=== PATIENT | female | born 2000 | race Caucasian/White ===

== ENCOUNTER 2022-02-05 17:10 | Inpatient (IN) ==
[2022-02-05] MEDS ORDERED: SODIUM CHLORIDE 0.9% 1000ML 1,000 ML IV ONE (17:28)
--- NOTE | 2022-02-05 17:28 | ED Triage Note ---
Date of Service February 05, 2022 History of Present Illness This patient was briefly evaluated while in triage. An abbreviated physical exam was performed. This patient is a 21-year-old Female with past medical history of Type 1 DM who presents to the ED for evaluation of elevated blood sugar. States they diagnosed her with Type 1 DM today with elevated blood sugar of 400. Physical Exam VITALS: Vitals are noted on the nurse's note and reviewed by myself. GENERAL: This is a 21 year old white female, in no acute distress, nondiaphoretic, well-developed well-nourished. SKIN: No obvious rashes, edema, erythema HEAD: Normocephalic atraumatic. EYES: Conjunctivae without injection, sclerae without icterus. NECK: No JVD. LUNGS: No retractions or accessory muscle use. MUSCULOSKELETAL: Normal gait. NEURO: Patient was alert and oriented to person place and time. No focal neurological deficits. Initial orders for labs and / or imaging were placed and patient was placed in the waiting area until a bed is available. Please see further documentation for the full ED course.
[2022-02-05 19:41] LABS: Basophils # (auto) 0.09 K/uL (0-0.2); Basophils % (auto) 0.9 %; Eosinophils # (auto) 0.12 K/uL (0-0.50); Eosinophils % (auto) 1.2 %; Hemoglobin 13.1 g/dl (12.0-16.0); Immature Granulocytes # (auto) 0.02 K/uL (0.00-0.02); Immature Granulocytes % (auto) 0.2 %; Lymphocytes # (auto) 2.75 K/uL (1.2-3.4); Lymphocytes % (auto) 28.3 %; Mean Corpuscular Hemoglobin 26.9 pg (25.0-34.0); Mean Corpuscular Hgb Conc 33.6 g/dL (32.0-36.0); Mean Corpuscular Volume 80.1 fL (80.0-100.0); Mean Platelet Volume 11.5 fL (9.4-12.3); Monocytes # (auto) 0.82 K/uL (0.24-0.82); Monocytes % (auto) 8.4 %; Neutrophils # (auto) 5.92 K/uL (1.4-6.5); Platelet Count 241 K/uL (130-400); RDW Coefficient of Variation 14.1 % (11.5-14.5); RDW Standard Deviation 40.2 fL (36.4-46.3); Red Blood Count 4.87 M/uL (3.93-5.22); White Blood Count 9.72 K/ul (4.8-10.8)
[2022-02-05 19:48] LABS: Appearance Urine Clear (Clear); Bilirubin Urine Negative (Negative); Blood Urine Negative (Negative); Color Urine Yellow; Glucose Urine UA 3+ (Negative); Ketones Urine 4+ (Negative); Leukocyte Esterase Urine Negative (Negative); Nitrite Urine Negative (Negative); Protein Urine Negative (Negative); Specific Gravity Urine > 1.045 (1.000-1.030); Urobilinogen Urine Negative (Negative); pH Urine 5.5 (4.5-7.5)
[2022-02-05 20:05] LABS: Albumin Globulin Ratio 1.3 (0.9-2); Albumin Level 4.1 gm/dl (3.4-5.0); BUN Creatinine Ratio 17.9 (10-20); Bilirubin,Total 0.4 mg/dl (0.2-1.0); Calcium 9.1 mg/dl (8.5-10.1); Creatinine Clr Calc Pharmacy 128.8 ml/min; Est GFR (Non-African American) 108.7 ml/min; Globulin 3.2 gm/dl (2.5-4.0); Magnesium 1.8 mg/dl (1.7-2.4); Potassium 3.9 mmol/L (3.5-5.1); Total Protein 7.3 gm/dl (6.0-8.3)
[2022-02-05] MEDS ORDERED: FLUCONAZOLE 50 MG TAB PO ONE (20:10)
[2022-02-05 20:12] LABS: Pregnancy Test, Serum Negative (Negative)
[2022-02-05] MEDS ORDERED: ACETAMINOPHEN 325 MG TAB PO PRN (20:39)
--- NOTE | 2022-02-05 20:40 | History & Physical Report ---
Date of Service February 05, 2022 Assessment & Plan (1) Diabetes mellitus, new onset: Plan: This is a 21-year-old female with an extensive family history of thyroid issues (hyperthyroidism and hypothyroidism) as well as MGM with RA who presented to [facility] for evaluation of >1 month of polydipsia, polyuria, and polyphagia, subsequently found to have a BSG >350 on arrival (>400 at S just prior). Her presentation in the context of a FHX of autoimmune-related issues is concerning for T1DM/DM1.5. Symptomatic Hyperglycemia / New-onset DM - Likely Type I or 1.5 - Polyuria, polyphagia, polydipsia x >1 month without recent medication changes, illnesses, or other reported symptoms - FHX is significant for multiple maternal relatives with hyper/hypothyroidism and patient's MGM has RA -- no FHX of T1DM or otherwise - Work-up as follows: - Serum BSG on arrival 321 (at [facility], was apparently >400) - Normal AG 10, normal HCO3 at 24 - 3+ glycosuria, 4+ ketonuria - BMI 25.9 on arrival - A1c pending ; lipids pending - In context of autoimmune family history, suspect likely sec to new-onset T1DM -- thankfully without evidence of DKA at this time. Type 1.5 is also possible. No findings c/w parapancreatic, medication, metabolic, or illness induced at this time. - Will check the following prior to insulin initiation: anti-GAD65, anti-IA2, anti-insulin, anti-ZnT8 alongside Cu, Fe/ferritin --> Consider checking C-peptide and serum insulin levels as outpatient once this acute event resolves - Aggressive hydration; give another 1L LR bolus now, then start 0.45% NaCl alongside 4 x 10mEq KCls - Given work-up is ongoing and we do not have A1c at this time -- opt to start insulin gtt to gauge total needs before initiating basal/bolus --> Start with 2U bolus and thereafter 2U/hr --> Consider the following regimen if A1c returns c/w T1DM: 60-80U TDD / 30- 40 basal / 20-30 CF / CC 6-8U/g --> Glycemic consult appreciated during initial phase with gtt --> Check BMP + Phos q4h and replete PRN - Diabetes education consulted - Extensive education at bedside provided RE: pathophysiology, causes, treatments - Will require endocrinology consultation at discharge (2) Candidal vulvovaginitis: Plan: Candidal Vulvovaginitis - Patient reporting pruritis in vaginal area over last week - exam deferred - Likely candidal vulvovaginitis in setting of hyperglycemia - Fluconazole 150mg x 1 given in the ED Plan Code: FULL Diet: DM1 PPX: Low risk Dispo: MS/T while insulin infusion ongoing History of Present Illness Primary Care Provider: [facility] This is a 21-year-old female with no prior medical history who presented to [facility] for evaluation of hyperglycemia. Patient states that over the last month, she has been experiencing excessive thirst, excessive urination, and excessive appetite. She also says that she has been getting muscle cramps in her legs. She denies ever having this before. She denies any recent fever, chills, sweats, or illnesses. She denies any abdominal pain. She denies any recent medications. Due to the interruptions that the symptoms were causing in her life, including sleep, she did go to [facility], who performed basic chemistries that revealed a serum sugar over 400. She was instructed to go to the emergency department for further evaluation and work-up. 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 She does endorse occasional marijuana use and infrequent alcohol use; she does say that over the last month since the symptoms have been going on that her memory after night of drinking has been a lot worse, and hangovers have been worse. She denies any family history of type 1 diabetes, mom also denies this. Mom does report a personal history of "mixed thyroid problems, " as well as 2 maternal aunts of mother who both have hyperthyroidism, a brother of mother who has hypothyroidism. Mother also reports that her mother (maternal grandmother to patient) has rheumatoid arthritis. She denies any family history of celiac disease, lupus, ankylosing spondylitis. In the ED, patient was found to be borderline tachycardic at 99 with otherwise normal vital signs. CBC was normal. Chemistries revealing of sodium 130 in the context of blood sugar 321, normal LFTs. No gap, normal bicarb. Urine studies revealed high specific gravity with 3+ glucosuria and 4+ ketones. She was given 1L NSS and fluconazole. Allergies Allergy/AdvReac Type Severity Reaction Status Date / Time No Known Allergies Allergy Unverified 02/05/22 20:35 Home Medications Medication Instructions Recorded Confirmed Type drospirenone 3 mg-ethinyl 1 tab PO QPM 02/05/22 02/05/22 History estradiol 0.03 mg tablet blood sugar diagnostic (OneTouch #150 ea 02/06/22 Rx Verio test strips) insulin aspart U-100 100 unit/mL 50 unit (0.5 mL) subcut UD #15 mL 02/06/22 Rx (3 mL) subcutaneous pen (Novolog Flexpen U-100 Insulin aspart) insulin glargine 100 unit/mL (3 20 unit (0.2 mL) subcut DAILY #15 02/06/22 Rx mL) subcutaneous pen (Lantus mL Solostar U-100 Insulin) lancets 33 gauge (OneTouch Delica #150 ea 02/06/22 Rx Lancets) pen needle, diabetic 32 gauge x #150 ea 02/06/22 Rx 5/32" (Pen Needle) Past Med/Surg History Medical History No significant medical problems Social History Smoking Status: Never smoker Hx Alcohol Use: Yes Hx Substance Use: No Preferred Language: Cypriot Communication Ability: Effective Musculoskeletal Physician Required: No Beliefs That Will Affect Care: None Current Living Situation Comment: College Other Information That Helps Us Care for You: No Feels Safe at Home: Yes Safety Concerns: Feels Safe At This Time Assistive Devices: None Review of Systems Review of Systems: as per HPI Physical Exam Physical Exam: General: 21-year old female who is alert, oriented, and appears in no acute distress. HEENT: NCAT. - Eyes - Sclera are white, anicteric, and without injection. - Mouth - MMM - Neck - supple, no appreciable JVD Cardiac: Normal rate and regular rhythm; S1 and S2 present with no murmurs, rubs, or gallops. Pulmonary: Good respiratory effort with symmetric expansion of the chest. No use of accessory muscles. Lungs were clear to auscultation bilaterally with no crackles or wheezes. Abdominal: Normoactive bowel sounds. Abdomen was soft, nondistended, and non- tender to palpation. Extremities: Upper and lower extremities are warm and well perfused. No peripheral edema in the lower extremities bilaterally Psych: Well-developed, well-nourished, appropriately dressed for occasion. Behavior is cooperative and appropriate. Affect is WNL. Insight is appropriate. Results & Data Results & Data ([facility]) Vital Signs (Past 12 Hours) Vital Signs Temp Pulse Pulse Resp BP BP Pulse Ox 02/05/22 20:11 73 18 151/102 H 99 02/05/22 19:37 66 18 145/85 H 100 02/05/22 17:26 37.4 C 99 H 20 131/83 97 O2 Del Method 02/05/22 20:11 Room Air 02/05/22 19:37 Room Air 02/05/22 17:26 Room Air Supervising Physician Co-Signing Physician Notes Attending addendum: I have physically seen this patient, have supervised the medical residents activities, and agree with the H&P unless as otherwise noted. Assessment and Plan: New onset diabetes mellitus- BSG 321 on admission Ordered hemoglobin A1c and fasting lipid panel Insulin drip as noted to determine insulin requirements Serial CBC with differential, BMP and phosphorus levels as noted Diabetes education consult as noted IV fluids as noted Following potassium closely with supplementation as noted Elizabeth vulvovaginitis- Empiric Diflucan as noted Remaining orders and notations as noted Resident Activity Tracking Resident Involvement: Resident Care Provided Care Provided: Adult Hospital Medicine
[2022-02-05] MEDS ORDERED: POTASSIUM CHLORIDE CRTAB 20 MEQ TABCR PO STA (20:55)
[2022-02-05] MEDS ORDERED: LACTATED RINGER'S 1,000 ML IV ONE (20:55)
--- NOTE | 2022-02-05 20:58 | Emergency Department Note ---
Impression & Plan Hyperglycemia, Acute dehydration, Acute hyponatremia, Candidal vulvovaginitis ED Provider Note NAME: MADAY BENAVIDES AGE: 21 SEX: F : 2000 ARRIVES VIA: Walk-In INFORMANT: [Patient] ED PROVIDER(S): [Ashvin Corrigan MD] CHIEF COMPLAINT: Abnormal laboratories HISTORY OF PRESENT ILLNESS: The patient is a 21-year-old female who presents to the ER with a high blood sugar. She was called by [facility] and told her sugar was over 400. The patient has had about a month and increased thirst and increased urination. She has some leg cramps. For 2 days, she has had symptoms consistent with a vaginal yeast infection. She had lab work done as noted above and then was referred to our ED. There has been no cough or cold or congestion. No chest pain. She has not been feeling feverish. She has no history of diabetes REVIEW OF SYSTEMS: See HPI for pertinent positives and negatives. A total of ten systems were r eviewed and were otherwise negative. PMHx/PSHx: See Below SOCIAL HISTORY: See Below. PHYSICAL EXAM: GENERAL: Patient is in no acute distress. HEENT: No acute trauma, normocephalic atraumatic, mucous membranes moist, no nasal congestion, no scleral icterus. NECK: No stridor, no adenopathy, no meningismus, trachea is midline. LUNGS: Clear to auscultation bilaterally, no wheeze, no rhonchi, breath sounds equal. HEART: Subtle systolic murmur, slightly irregular rhythm. Normal rate. ABDOMEN: Soft, nontender, bowel sounds positive, no peritonitis. EXTREMITIES: No cyanosis or edema, full range of motion of all the joints without pain or difficulty, no signs for acute trauma. NEUROLOGIC: Oriented x 3, no acute motor or sensory deficits, no focal weakness. SKIN: No rash, no jaundice, no diaphoresis. DIFFERENTIAL DIAGNOSIS: Generalized viral illness, dehydration, electrolyte imbalance, diabetes type 2, diabetes type 1, UTI, infection, among others. EMERGENCY DEPARTMENT COURSE/PROCEDURES: MEDICAL DECISION MAKING: There is no leukocytosis or concerning anemia. There is a normal platelet count. Sodium was low at 130. Glucose was high at 321. No renal failure. No worrisome liver enzyme elevation. No pancreatitis. testing was negative. Urine showed ketones and glucose. COVID test returned negative. The patient appears to have new onset diabetes, likely type I given her age and body habitus. The patient was given IV saline, 2 L. I did not start IV insulin as the patient did not appear to be in DKA. I do think the patient requires a hospital stay. She is quite dehydrated. She will need education on how to manage her newly diagnosed diabetes. I did speak with the patient and her family, I spoke with case management, the on-call hospitalist was consulted. Of note, the patient describes symptoms consistent with a vaginal yeast infection. This certainly would fit with her newly diagnosed diabetes. The patient was given oral Diflucan, 150 mg to treat what was thought to be a vaginal yeast infection. Past Med/Surg History Medical History No significant medical problems Social History Smoking Status: Never smoker Hx Alcohol Use: Yes Hx Substance Use: No Preferred Language: Armenian Communication Ability: Effective Eligibility Examiner Required: No Beliefs That Will Affect Care: None Current Living Situation Comment: College Other Information That Helps Us Care for You: No Feels Safe at Home: Yes Safety Concerns: Feels Safe At This Time Assistive Devices: None Allergies Allergies Allergy/AdvReac Type Severity Reaction Status Date / Time No Known Allergies Allergy Unverified 02/05/22 20:35 Home Meds Home Medications Medication Instructions Recorded Confirmed drospirenone 3 mg-ethinyl 1 tab PO QPM 02/05/22 02/05/22 estradiol 0.03 mg tablet Results & Data (ED) Vital Signs Vital Signs - 24 hr 02/05/22 17:26 02/05/22 19:37 02/05/22 20:11 Temperature 37.4 C Temperature Source Skin Pulse Rate 99 H Pulse Rate [Finger] 66 73 Pulse Rhythm [Finger] Regular Pulse Strength [Finger] Normal Respiratory Rate 20 18 18 Respiratory Effort / Characteristics Non-Labored Spontaneous Non-Labored Spontaneous Non-Labored Spontaneous Respiratory Depth Normal Normal Normal Respiratory Pattern Regular Regular Regular Blood Pressure 131/83 Blood Pressure [Left Arm] 145/85 H 151/102 H Blood Pressure Mean 99 Blood Pressure Mean [Left Arm] 105 118 Pulse Oximetry 97 100 99 Oxygen Delivery Method Room Air Room Air Room Air Sepsis Recent Fever Within 48 Hours No Sepsis New/Unexplained Change in Mental Status N/A Sepsis Action Taken by Nursing No Action Required Home Medications Current Medication List: was personally reviewed by me Laboratory Data Attestation: I reviewed the patient's lab results. Result diagrams: 02/05/22 19:26 02/06/22 12:09 Lab Results 02/05/22 02/05/22 02/05/22 Range/Units 19:20 19:26 19:26 WBC 9.72 (4.8-10.8) K/ul RBC 4.87 (3.93-5.22) M/uL Hgb 13.1 (12.0-16.0) g/dl Hct 39.0 (34.1-44.9) % MCV 80.1 (80.0-100.0) fL MCH 26.9 (25.0-34.0) pg MCHC 33.6 (32.0-36.0) g/dL RDW Std Deviation 40.2 (36.4-46.3) fL RDW Coeff of Jeremy 14.1 (11.5-14.5) % Plt Count 241 (130-400) K/uL MPV 11.5 (9.4-12.3) fL Immature Gran % (Auto) 0.2 % Neut % (Auto) 61.0 % Lymph % (Auto) 28.3 % [place] % (Auto) 8.4 % Eos % (Auto) 1.2 % Baso % (Auto) 0.9 % Neut # (Auto) 5.92 (1.4-6.5) K/uL Lymph # (Auto) 2.75 (1.2-3.4) K/uL [place] # (Auto) 0.82 (0.24-0.82) K/uL Eos # (Auto) 0.12 (0-0.50) K/uL Baso # (Auto) 0.09 (0-0.2) K/uL Immature Gran # (Auto) 0.02 (0.00-0.02) K/uL Sodium 130 L (136-145) mmol/L Potassium 3.9 (3.5-5.1) mmol/L Chloride 96 L (98-107) mmol/L Carbon Dioxide 24 (21-32) mmol/L Anion Gap 10 (3-11) BUN 14 (6-23) mg/dl Creatinine 0.78 (0.6-1.2) mg/dl Est Cr Clr Drug Dosing 128.8 ml/min Est GFR ( Amer) 126.0 ml/min Est GFR (Non-Af Amer) 108.7 ml/min BUN/Creatinine Ratio 17.9 (10-20) Glucose 321 H* (70-99(Fasting)) mg/dl POC Glucose 313 H* (70-99) mg/dl Estimat Average Glucose mg/dl Hemoglobin A1c (4.5-5.6) % Calcium 9.1 (8.5-10.1) mg/dl Magnesium 1.8 (1.7-2.4) mg/dl Iron (35-150) mcg/dl Ferritin (8-388) ng/ml Total Bilirubin 0.4 (0.2-1.0) mg/dl AST 21 (13-39) U/L ALT 22 (7-52) U/L Alkaline Phosphatase 87 (34-104) U/L Total Protein 7.3 (6.0-8.3) gm/dl Albumin 4.1 (3.4-5.0) gm/dl Globulin 3.2 (2.5-4.0) gm/dl Albumin/Globulin Ratio 1.3 (0.9-2) Triglycerides (0-150) mg/dl Cholesterol (0-200) mg/dl LDL Cholesterol, Calc mg/dl VLDL Cholesterol, Calc (0-30) mg/dl HDL Cholesterol mg/dl Cholesterol/HDL Ratio (0-5) Lipase (11-82) U/L HCG, Qual (Negative) Urine Color Urine Appearance (Clear) Urine pH (4.5-7.5) Ur Specific [place] (1.000-1.030) Urine Protein (Negative) Urine Glucose (UA) (Negative) Urine Ketones (Negative) Urine Blood (Negative) Urine Nitrite (Negative) Urine Bilirubin (Negative) Urine Urobilinogen (Negative) Ur Leukocyte Esterase (Negative) SARS-CoV-2, RNA, NAAT (NEGATIVE) 02/05/22 02/05/22 02/05/22 Range/Units 19:26 19:26 19:26 WBC (4.8-10.8) K/ul RBC (3.93-5.22) M/uL Hgb (12.0-16.0) g/dl Hct (34.1-44.9) % MCV (80.0-100.0) fL MCH (25.0-34.0) pg MCHC (32.0-36.0) g/dL RDW Std Deviation (36.4-46.3) fL RDW Coeff of Jeremy (11.5-14.5) % Plt Count (130-400) K/uL MPV (9.4-12.3) fL Immature Gran % (Auto) % Neut % (Auto) % Lymph % (Auto) % [place] % (Auto) % Eos % (Auto) % Baso % (Auto) % Neut # (Auto) (1.4-6.5) K/uL Lymph # (Auto) (1.2-3.4) K/uL [place] # (Auto) (0.24-0.82) K/uL Eos # (Auto) (0-0.50) K/uL Baso # (Auto) (0-0.2) K/uL Immature Gran # (Auto) (0.00-0.02) K/uL Sodium (136-145) mmol/L Potassium (3.5-5.1) mmol/L Chloride (98-107) mmol/L Carbon Dioxide (21-32) mmol/L Anion Gap (3-11) BUN (6-23) mg/dl Creatinine (0.6-1.2) mg/dl Est Cr Clr Drug Dosing ml/min Est GFR ( Amer) ml/min Est GFR (Non-Af Amer) ml/min BUN/Creatinine Ratio (10-20) Glucose (70-99(Fasting)) mg/dl POC Glucose (70-99) mg/dl Estimat Average Glucose 349 mg/dl Hemoglobin A1c 13.8 H (4.5-5.6) % Calcium (8.5-10.1) mg/dl Magnesium (1.7-2.4) mg/dl Iron (35-150) mcg/dl Ferritin (8-388) ng/ml Total Bilirubin (0.2-1.0) mg/dl AST (13-39) U/L ALT (7-52) U/L Alkaline Phosphatase (34-104) U/L Total Protein (6.0-8.3) gm/dl Albumin (3.4-5.0) gm/dl Globulin (2.5-4.0) gm/dl Albumin/Globulin Ratio (0.9-2) Triglycerides 179 H (0-150) mg/dl Cholesterol 177 (0-200) mg/dl LDL Cholesterol, Calc 69 mg/dl VLDL Cholesterol, Calc 36 H (0-30) mg/dl HDL Cholesterol 72 mg/dl Cholesterol/HDL Ratio 2.5 (0-5) Lipase (11-82) U/L HCG, Qual Negative (Negative) Urine Color Urine Appearance (Clear) Urine pH (4.5-7.5) Ur Specific [place] (1.000-1.030) Urine Protein (Negative) Urine Glucose (UA) (Negative) Urine Ketones (Negative) Urine Blood (Negative) Urine Nitrite (Negative) Urine Bilirubin (Negative) Urine Urobilinogen (Negative) Ur Leukocyte Esterase (Negative) SARS-CoV-2, RNA, NAAT (NEGATIVE) 02/05/22 02/05/22 02/05/22 Range/Units 19:26 19:26 19:31 WBC (4.8-10.8) K/ul RBC (3.93-5.22) M/uL Hgb (12.0-16.0) g/dl Hct (34.1-44.9) % MCV (80.0-100.0) fL MCH (25.0-34.0) pg MCHC (32.0-36.0) g/dL RDW Std Deviation (36.4-46.3) fL RDW Coeff of Jeremy (11.5-14.5) % Plt Count (130-400) K/uL MPV (9.4-12.3) fL Immature Gran % (Auto) % Neut % (Auto) % Lymph % (Auto) % [place] % (Auto) % Eos % (Auto) % Baso % (Auto) % Neut # (Auto) (1.4-6.5) K/uL Lymph # (Auto) (1.2-3.4) K/uL [place] # (Auto) (0.24-0.82) K/uL Eos # (Auto) (0-0.50) K/uL Baso # (Auto) (0-0.2) K/uL Immature Gran # (Auto) (0.00-0.02) K/uL Sodium (136-145) mmol/L Potassium (3.5-5.1) mmol/L Chloride (98-107) mmol/L Carbon Dioxide (21-32) mmol/L Anion Gap (3-11) BUN (6-23) mg/dl Creatinine (0.6-1.2) mg/dl Est Cr Clr Drug Dosing ml/min Est GFR ( Amer) ml/min Est GFR (Non-Af Amer) ml/min BUN/Creatinine Ratio (10-20) Glucose (70-99(Fasting)) mg/dl POC Glucose (70-99) mg/dl Estimat Average Glucose mg/dl Hemoglobin A1c (4.5-5.6) % Calcium (8.5-10.1) mg/dl Magnesium (1.7-2.4) mg/dl Iron 56 (35-150) mcg/dl Ferritin 10.3 (8-388) ng/ml Total Bilirubin (0.2-1.0) mg/dl AST (13-39) U/L ALT (7-52) U/L Alkaline Phosphatase (34-104) U/L Total Protein (6.0-8.3) gm/dl Albumin (3.4-5.0) gm/dl Globulin (2.5-4.0) gm/dl Albumin/Globulin Ratio (0.9-2) Triglycerides (0-150) mg/dl Cholesterol (0-200) mg/dl LDL Cholesterol, Calc mg/dl VLDL Cholesterol, Calc (0-30) mg/dl HDL Cholesterol mg/dl Cholesterol/HDL Ratio (0-5) Lipase 31 (11-82) U/L HCG, Qual (Negative) Urine Color Yellow Urine Appearance Clear (Clear) Urine pH 5.5 (4.5-7.5) Ur Specific [place] > 1.045 H (1.000-1.030) Urine Protein Negative (Negative) Urine Glucose (UA) 3+ H (Negative) Urine Ketones 4+ H (Negative) Urine Blood Negative (Negative) Urine Nitrite Negative (Negative) Urine Bilirubin Negative (Negative) Urine Urobilinogen Negative (Negative) Ur Leukocyte Esterase Negative (Negative) SARS-CoV-2, RNA, NAAT (NEGATIVE) 02/05/22 02/05/22 Range/Units 20:15 20:22 WBC (4.8-10.8) K/ul RBC (3.93-5.22) M/uL Hgb (12.0-16.0) g/dl Hct (34.1-44.9) % MCV (80.0-100.0) fL MCH (25.0-34.0) pg MCHC (32.0-36.0) g/dL RDW Std Deviation (36.4-46.3) fL RDW Coeff of Jeremy (11.5-14.5) % Plt Count (130-400) K/uL MPV (9.4-12.3) fL Immature Gran % (Auto) % Neut % (Auto) % Lymph % (Auto) % [place] % (Auto) % Eos % (Auto) % Baso % (Auto) % Neut # (Auto) (1.4-6.5) K/uL Lymph # (Auto) (1.2-3.4) K/uL [place] # (Auto) (0.24-0.82) K/uL Eos # (Auto) (0-0.50) K/uL Baso # (Auto) (0-0.2) K/uL Immature Gran # (Auto) (0.00-0.02) K/uL Sodium (136-145) mmol/L Potassium (3.5-5.1) mmol/L Chloride (98-107) mmol/L Carbon Dioxide (21-32) mmol/L Anion Gap (3-11) BUN (6-23) mg/dl Creatinine (0.6-1.2) mg/dl Est Cr Clr Drug Dosing ml/min Est GFR ( Amer) ml/min Est GFR (Non-Af Amer) ml/min BUN/Creatinine Ratio (10-20) Glucose (70-99(Fasting)) mg/dl POC Glucose 291 H (70-99) mg/dl Estimat Average Glucose mg/dl Hemoglobin A1c (4.5-5.6) % Calcium (8.5-10.1) mg/dl Magnesium (1.7-2.4) mg/dl Iron (35-150) mcg/dl Ferritin (8-388) ng/ml Total Bilirubin (0.2-1.0) mg/dl AST (13-39) U/L ALT (7-52) U/L Alkaline Phosphatase (34-104) U/L Total Protein (6.0-8.3) gm/dl Albumin (3.4-5.0) gm/dl Globulin (2.5-4.0) gm/dl Albumin/Globulin Ratio (0.9-2) Triglycerides (0-150) mg/dl Cholesterol (0-200) mg/dl LDL Cholesterol, Calc mg/dl VLDL Cholesterol, Calc (0-30) mg/dl HDL Cholesterol mg/dl Cholesterol/HDL Ratio (0-5) Lipase (11-82) U/L HCG, Qual (Negative) Urine Color Urine Appearance (Clear) Urine pH (4.5-7.5) Ur Specific [place] (1.000-1.030) Urine Protein (Negative) Urine Glucose (UA) (Negative) Urine Ketones (Negative) Urine Blood (Negative) Urine Nitrite (Negative) Urine Bilirubin (Negative) Urine Urobilinogen (Negative) Ur Leukocyte Esterase (Negative) SARS-CoV-2, RNA, NAAT NEGATIVE (NEGATIVE) Administered Medications Sodium Chloride (1/2 Nss) 1,000 mls @ 150 mls/hr IV .Q6H40M ANUJA Stop: 03/07/22 23:31 Last Admin: 02/06/22 12:48 Dose: 150 mls/hr Documented By: Infusion: 02/06/22 12:48 Dose: 150 mls/hr Documented By: Admin: 02/06/22 06:20 Dose: 150 mls/hr Documented By: Infusion: 02/06/22 06:20 Dose: 0 mls/hr Documented By: Admin: 02/06/22 00:02 Dose: 150 mls/hr Documented By: NIKHIL Insulin Aspart (Insulin Aspart Per Unit) 0 units SC ACHS ANUJA Stop: 03/08/22 12:39 Last Admin: 02/06/22 12:42 Dose: 10 units Documented By: SUMANTH Co-signed By: HERMILO Miscellaneous (Oral Contraceptive: Order Awaiting Action) 1 each N/A QS [facility] Stop: 03/08/22 07:59 Last Admin: 02/06/22 12:29 Dose: Not Given Documented By: CC Discontinued Medications Fluconazole (Fluconazole 50 Mg Tab) 150 mg PO NOW ONE Stop: 02/05/22 20:11 Last Admin: 02/05/22 20:15 Dose: 150 mg Documented By: JOSUÉ Sodium Chloride (Nss 1000ml) 1,000 mls @ 999 mls/hr IV .Q1H1M ONE Stop: 02/05/22 18:28 Last Infusion: 02/05/22 20:15 Dose: 0 mls/hr Documented By: Admin: 02/05/22 19:35 Dose: 999 mls/hr Documented By: TONO Lactated Ringer's (Lr) 1,000 mls @ 999 mls/hr IV .Q1H1M ONE Stop: 02/05/22 21:55 Last Infusion: 02/05/22 22:54 Dose: 0 mls/hr Documented By: Admin: 02/05/22 21:34 Dose: 999 mls/hr Documented By: JOSUÉ Potassium Chloride (K Toño / Wtr) 10 meq in 100 mls @ 100 mls/hr IV Q1H ANUJA Stop: 02/05/22 23:59 Last Infusion: 02/06/22 03:56 Dose: 0 mls/hr Documented By: Admin: 02/06/22 01:48 Dose: 50 mls/hr Documented By: Infusion: 02/06/22 01:48 Dose: 0 mls/hr Documented By: Admin: 02/06/22 00:02 Dose: 100 mls/hr Documented By: Infusion: 02/05/22 22:54 Dose: 0 mls/hr Documented By: Admin: 02/05/22 21:39 Dose: 100 mls/hr Documented By: JOSUÉ Insulin Human Regular 250 (units/ Sodium Chloride) 250 mls @ 0 mls/hr IV .Q0M ANUJA; Protocol Stop: 03/08/22 00:29 Last Titration: 02/06/22 12:32 Dose: 0 units/hr, 0 mls/hr Documented By: SUMANTH Co-signed By: HERMILO Titration: 02/06/22 08:00 Dose: 0 units/hr, 0 mls/hr Documented By: SUMANTH Co-signed By: HERMILO Titration: 02/06/22 03:06 Dose: 1.6 units/hr, 1.6 mls/hr Documented By: JOSUÉ Co-signed By: LETICIA Titration: 02/06/22 01:35 Dose: 2 units/hr, 2 mls/hr Documented By: NIKHIL Co-signed By: JOSUÉ Admin: 02/06/22 00:32 Dose: 2 units/hr, 2 mls/hr Documented By: NIKHIL Co-signed By: JOSUÉ Insulin Aspart (Insulin Aspart Per Unit) 0 units SC ACHS ANUJA Stop: 03/08/22 07:29 Last Admin: 02/06/22 09:45 Dose: Not Given Documented By: CC Insulin Aspart (Insulin Aspart Per Unit) 3 units SC ONE ONE Stop: 02/06/22 09:46 Last Admin: 02/06/22 09:45 Dose: 3 units Documented By: SUMANTH Co-signed By: MISTY Insulin Glargine (Lantus Per Unit Charge) 20 units SQ ONE ONE Stop: 02/06/22 09:31 Last Admin: 02/06/22 09:45 Dose: 20 units Documented By: SUMANTH Co-signed By: MISTY Insulin Human Regular (Novolin-R Bolus From Bag) 2 units IV ONE ONE Stop: 02/06/22 00:31 Last Admin: 02/06/22 00:45 Dose: 2 units Documented By: NIKHIL Co-signed By: JOSUÉ Miscellaneous (Moderate Stress Level ) 1 each N/A NOW STA Stop: 02/05/22 22:57 Last Admin: 02/06/22 00:44 Dose: 1 each Documented By: NIKHIL Demarco (Insulin Protocol Goal Range ) 1 each N/A ONE ONE Stop: 02/05/22 22:55 Last Admin: 02/06/22 00:43 Dose: 1 each Documented By: NIKHIL Potassium Chloride (Potassium Chloride Crtab 20 Meq Tabcr) 40 meq PO NOW STA Stop: 02/05/22 20:56 Last Admin: 02/05/22 21:39 Dose: 40 meq Documented By: JOSUÉ Discharge Plan Visit Data Chief Complaint: Abnormal Labs/Diagnostic Testing Stated Complaint: DIABETES, BLOOD SUGAR HIGH ED Provider: Ashvin Corrigan Discharge Problem: Hyperglycemia, Acute dehydration, Acute hyponatremia, Candidal vulvovaginitis Patient Disposition: Admitted As Inpatient Condition: Fair Discharge Instructions Interventions: ED Discharge Assessment Last Done: 02/05/22 23:32
[2022-02-05 21:07] LABS: Chol HDL Ratio 2.5 (0-5)
[2022-02-05] MEDS: POTASSIUM CHLORIDE / WTR 10 MEQ/100 ML PLCT IV SCH (21:39)
[2022-02-05 21:55] LABS: Iron 56 mcg/dl (35-150); Lipase 31 U/L (11-82)
[2022-02-05] MEDS ORDERED: PHARMACY GLYCEMIC MGMT CONSULT PRN (21:55)
[2022-02-05] MEDS ORDERED: INSULIN PROTOCOL GOAL RANGE ONE (22:54)
[2022-02-05] MEDS ORDERED: STAT IV Infusion **Titration per Protocol STA (22:54)
[2022-02-05] MEDS ORDERED: MODERATE STRESS LEVEL STA (22:56)
[2022-02-05] MEDS ORDERED: GLUCAGON FOR INJ 1 MG VIAL SQ PRN (23:32)
[2022-02-05] MEDS ORDERED: DEXTROSE 50% 50 ML SYRINGE IV PRN (23:32)
[2022-02-05] MEDS ORDERED: CARBOHYDRATES FOR HYPOGLYCEMIA PO PRN (23:32)
[2022-02-05] MEDS ORDERED: GLUCOSE 10 TAB/TUBE PO PRN (23:32)
[2022-02-05] MEDS ORDERED: GLUCOSE 40% GEL 15 GM TUBE PO PRN (23:32)
[2022-02-06] MEDS: POTASSIUM CHLORIDE / WTR 10 MEQ/100 ML PLCT IV SCH ×2 (00:02→01:48)
[2022-02-06] MEDS: SODIUM CHLORIDE 0.45 % 1,000 ML IV SCH ×4 (00:02→20:47)
[2022-02-06] MEDS ORDERED: INSULIN REGULAR 250 UNITS in SODIUM CHLORIDE 0.9% 247.5 ML IV SCH (00:30)
[2022-02-06] MEDS ORDERED: NovoLIN-R BOLUS FROM BAG IV ONE (00:30)
[2022-02-06 00:47] LABS: BUN Creatinine Ratio 15.9 (10-20); Calcium 8.5 mg/dl (8.5-10.1); Creatinine Clr Calc Pharmacy 159.5 ml/min; Est GFR (African American) 148.6 ml/min; Est GFR (Non-African American) 128.2 ml/min; Potassium 3.8 mmol/L (3.5-5.1)
[2022-02-06 04:12] LABS: Anion Gap 8 (3-11); BUN Creatinine Ratio 13.8 (10-20); Blood Urea Nitrogen 8 mg/dl (6-23); Calcium 8.2 mg/dl (8.5-10.1); Carbon Dioxide 22 mmol/L (21-32); Chloride 104 mmol/L (98-107); Creatinine Clr Calc Pharmacy 173.2 ml/min; Est GFR (African American) > 150.0 ml/min; Est GFR (Non-African American) 131.8 ml/min; Glucose 149 mg/dl (70-99(Fasting)); Phosphorus 3.5 mg/dl (2.5-4.9); Potassium 4.1 mmol/L (3.5-5.1); Sodium 134 mmol/L (136-145)
--- NOTE | 2022-02-06 06:50 | Hospitalist Progress Note ---
Date of Service February 06, 2022 Assessment & Plan (1) Diabetes mellitus, new onset: Plan: This is a 21-year-old female with an extensive family history of thyroid issues (hyperthyroidism and hypothyroidism) as well as MGM with RA who presented to [facility] for evaluation of >1 month of polydipsia, polyuria, and polyphagia, subsequently found to have a BSG >350 on arrival (>400 at S just prior). Her presentation in the context of a FHX of autoimmune-related issues is concerning for T1DM/DM1.5. Symptomatic Hyperglycemia / New-onset DM - Likely Type I or 1.5 - Polyuria, polyphagia, polydipsia x >1 month without recent medication changes, illnesses, or other reported symptoms - FHX is significant for multiple maternal relatives with hyper/hypothyroidism and patient's MGM has RA -- no FHX of T1DM or otherwise - Work-up as follows: - Serum BSG on arrival 321 (at [facility], was apparently >400) - Normal AG 10, normal HCO3 at 24 - 3+ glycosuria, 4+ ketonuria - BMI 25.9 on arrival - A1c pending ; lipids pending - In context of autoimmune family history, suspect likely sec to new-onset T1DM -- thankfully without evidence of DKA at this time. Type 1.5 is also possible. No findings c/w parapancreatic, medication, metabolic, or illness induced at this time. - Will check the following prior to insulin initiation: anti-GAD65, anti-IA2, anti-insulin, anti-ZnT8 alongside Cu, Fe/ferritin --> Consider checking C-peptide and serum insulin levels as outpatient once this acute event resolves - Aggressive hydration; give another 1L LR bolus now, then start 0.45% NaCl alongside 4 x 10mEq KCls - Given work-up is ongoing and we do not have A1c at this time -- opt to start insulin gtt to gauge total needs before initiating basal/bolus --> Start with 2U bolus and thereafter 2U/hr --> Consider the following regimen if A1c returns c/w T1DM: 60-80U TDD / 30- 40 basal / 20-30 CF / CC 6-8U/g --> Glycemic consult appreciated during initial phase with gtt --> Check BMP + Phos q4h and replete PRN - Diabetes education consulted - Extensive education at bedside provided RE: pathophysiology, causes, treatments - Will require endocrinology consultation at discharge (2) Candidal vulvovaginitis: Plan: Candidal Vulvovaginitis - Patient reporting pruritis in vaginal area over last week - exam deferred - Likely candidal vulvovaginitis in setting of hyperglycemia - Fluconazole 150mg x 1 given in the ED Plan Code: FULL Diet: DM1 PPX: Low risk Dispo: MS/T while insulin infusion ongoing Admission and Anticipated Discharge Date Admission Date: February 05, 2022 Review of Systems Review of Systems: as per HPI Results & Data Results & Data ([facility]) Vital Signs (Past 12 Hours) Vital Signs Temp Pulse Resp BP Pulse Ox O2 Del Method 02/06/22 06:19 51 L 120/73 02/06/22 06:13 54 L 18 120/73 98 Room Air 02/06/22 02:52 36.9 C 77 18 126/77 94 Room Air 02/06/22 00:08 77 18 145/87 H 98 Room Air 02/05/22 20:11 73 18 151/102 H 99 Room Air 02/05/22 19:37 66 18 145/85 H 100 Room Air
[2022-02-06 06:59] LABS: Estimated Average Glucose 349 mg/dl; Hemoglobin A1C 13.8 % (4.5-5.6)
[2022-02-06] MEDS ORDERED: LANTUS PER UNIT CHARGE SQ ONE (09:30)
[2022-02-06] MEDS ORDERED: INSULIN ASPART PER UNIT SC ONE (09:45)
[2022-02-06] MEDS: INSULIN ASPART PER UNIT SC SCH ×5 (09:45→20:47)
[2022-02-06] MEDS ORDERED: INSULIN ASPART PER UNIT SC SCH (12:05)
[2022-02-06] MEDS: ORAL CONTRACEPTIVE: ORDER AWAITING ACTION SCH ×2 (12:29→17:05)
--- NOTE | 2022-02-06 12:54 | Pharmacy Report ---
Pharmacy Glycemic Short Note 2 - Date of Service February 06, 2022 - Glycemic Short BSG Results (Last 24 hours): 02/05/22 02/05/22 02/05/22 19:20 19:26 20:22 Glucose 321 H* POC Glucose 313 H* 291 H 02/06/22 02/06/22 02/06/22 00:04 00:05 01:34 Glucose 241 H POC Glucose 237 H 205 H 02/06/22 02/06/22 02/06/22 02:47 03:34 04:20 Glucose 149 H POC Glucose 156 H 134 H 02/06/22 02/06/22 02/06/22 05:22 06:12 08:01 Glucose POC Glucose 122 H 123 H 73 02/06/22 02/06/22 02/06/22 09:13 10:18 10:20 Glucose POC Glucose 288 H 322 H* 300 H 02/06/22 11:56 Glucose POC Glucose 236 H OUTPATIENT ANTIDIABETIC REGIMEN: * N/A HbA1c: 13.8% (02/05/22) ASSESSMENT: * SB is a 21 year old female who presented to ED last evening following more than a month of polydipsia, polyuria, and polyphagia with an outpatient BSG of greater than 400 mg/dL. BSG upon arrival was 313 mg/dL. * New onset diabetes mellitus with HbA1c of 13.8%. * Family history of autoimmune disease, presumed late onset Type 1 DM/Type 1.5 DM * Insulin gtt initiated upon admission in order to get a better idea of overall insulin needs in this insulin-naive patient. * BSGs were well-controlled over night with insulin gtt infusing at ~1.6 unit/hr, but resulted in BSG this morning of 73 mg/dL * Generally, 0.5-0.8 unit/kg per day of insulin may be needed for insulin naive patients * Will be conservative and use 0.5 unit/kg/day (aim for ~20 units of basal and 20 units of prandial/correctional) + overnight checks PLAN FOR INPATIENT GLYCEMIC CONTROL: * Basal insulin * Lantus 20 units SQ x 1 * Bolus insulin * NovoLog per scale ACHS or Q6hrs while NPO * Goal Range: Low 110 mg/dL - High 140 mg/dL * Correction Factor: 35 mg/dL/unit * Nutritional / Prandial insulin per carb ratio of 1 unit per 12 grams CHO consumed
[2022-02-06 13:00] LABS: Anion Gap 8 (3-11); BUN Creatinine Ratio 10.7 (10-20); Blood Urea Nitrogen 6 mg/dl (6-23); Calcium 8.8 mg/dl (8.5-10.1); Carbon Dioxide 23 mmol/L (21-32); Chloride 104 mmol/L (98-107); Creatinine Clr Calc Pharmacy 179.4 ml/min; Est GFR (African American) > 150.0 ml/min; Est GFR (Non-African American) 133.3 ml/min; Glucose 232 mg/dl (70-99(Fasting)); Magnesium 1.8 mg/dl (1.7-2.4); Phosphorus 3.4 mg/dl (2.5-4.9); Potassium 4.1 mmol/L (3.5-5.1); Sodium 135 mmol/L (136-145)
--- NOTE | 2022-02-06 14:17 | Medical Student Progress Note ---
Date of Service February 06, 2022 Assessment & Plan (1) Hyperglycemia: Plan: (1) Diabetes mellitus, new onset: This is a 21-year-old female with an extensive family history of thyroid issues (hyperthyroidism and hypothyroidism) as well as MGM with RA who presented to [facility] for evaluation of > 1 month of polydipsia, polyuria, and polyphagia, subsequently found to have a BSG >350 on arrival (>400 at [facility] just prior). Her presentation in the context of a FHX of autoimmune- related issues is concerning for T1DM/DM1.5. Symptomatic Hyperglycemia / New-onset DM - Likely Type I or 1.5 - Polyuria, polyphagia, polydipsia x >1 month without recent medication changes, illnesses, or other reported symptoms - FHX is significant for multiple maternal relatives with hyper/hypothyroidism and patient's MGM has RA -- no FHX of T1DM or otherwise - Work-up as follows: - Serum BSG on arrival 321 (at [facility], was apparently >400) - Normal AG 10, normal HCO3 at 24 - 3+ glycosuria, 4+ ketonuria - BMI 25.9 on arrival - A1c 13.8% - In context of autoimmune family history, suspect likely sec to new-onset T1DM -- thankfully without evidence of DKA at this time. Type 1.5 is also possible. No findings c/w parapancreatic, medication, metabolic, or illness induced at this time. - Aggressive hydration was given; 1L LR bolus, then start 0.45% NaCl alongside 4 x 10mEq KCls - anti-GAD65, anti-IA2, anti-insulin, anti-ZnT8 alongside Cu, Fe/ferritin: pending --> Consider checking C-peptide and serum insulin levels as outpatient once this acute event resolves - Diabetes education consulted and completed 02/06/2022 - Extensive education at bedside provided RE: pathophysiology, causes, treatments - Will require endocrinology consultation at discharge - Continue to appreciate pharmacy recs on glycemic control which are as follows: - Basal insulin: Lantus 20 units SQ x 1; started this morning - Bolus insulin: insulin Aspart 1 to 12 carb ratio - Goal Range in hospital: Low 110 mg/dL - High 140 mg/dL; Correction Factor: 35 mg/dL/unit - Keep patient another day to ensure pt knows how to properly use the insulin; Discharge 02/07/22 - Follow up with [facility] (Dr. Zarate) (2) Candidal vulvovaginitis: - Patient reporting pruritis in vaginal area over last week - exam deferred - Likely candidal vulvovaginitis in setting of hyperglycemia - Fluconazole 150mg x 1 given in the ED - See Primary Care if worsening after discharge Plan Code: FULL Diet: DM1 PPX: Low risk Dispo: Med/Surg Admission and Anticipated Discharge Date Admission Date: February 05, 2022 Supervising Attestation I personally examined the patient and verified all monson points of history and exam, discussed case, and agree with decision making with A [place] feeling better overall. discussed DM control, insulin management, etc. Patient expressed good understanding. Vitals noted, in general she is awake and alert pleasant no distress. HEENT normocephalic atraumatic mucous membranes moist. Breathing unlabored no accessory muscle use good effort. Skin shows no rashes no pallor or icterus. Neuro without focal deficits. New onset type 1 diabetestransitioning off of insulin drip to subcu. Educating extensively. Patient expressed good understanding. Getting set up for close follow-up. Hopefully home tomorrow. Otherwise as above Subjective Pt doing better but still urinating every 3 hours which is better than before coming in (every 1 hour). She has not had any muscle cramps that she had before admission. Still blurriness of vision. No headache, fever, SOB, Chest Pain, abdominal pain, or pain with urination. Review of Systems Review of Systems: All systems reviewed & are unremarkable except as noted in HPI & below Physical Exam Constitutional: WD/WN, vitals as above (some generalized weakness/fatigue) Respiratory: normal respiratory effort, lungs clear to auscultation Cardiovascular: RRR, no murmur, no edema Results & Data ([facility]) Vital Signs (Past 12 Hours) Vital Signs Temp Pulse Resp BP BP Pulse Ox O2 Del Method 02/06/22 11:42 37.0 C 68 18 110/69 97 Room Air 02/06/22 08:31 36.7 C 87 16 122/64 99 Room Air 02/06/22 07:30 56 L 16 115/72 98 02/06/22 06:19 51 L 120/73 02/06/22 06:13 54 L 18 120/73 98 Room Air 02/06/22 02:52 36.9 C 77 18 126/77 94 Room Air
--- NOTE | 2022-02-06 17:58 | Billing Data ---
Date of Service February 06, 2022 Coding Level of Care Code 46132 Subseq Hosp Care Lvl 3
--- NOTE | 2022-02-06 17:59 | Billing Data ---
Date of Service February 06, 2022 Coding Level of Care Code 58901 Subseq Hosp Care Lvl 3
--- NOTE | 2022-02-06 21:28 | Billing Data ---
Date of Service February 06, 2022 Coding Level of Care Code 76303 Initial Inpt Care Lvl 3
[2022-02-07] MEDS: INSULIN ASPART PER UNIT SC SCH ×4 (00:12→12:18)
[2022-02-07] MEDS: ORAL CONTRACEPTIVE: ORDER AWAITING ACTION SCH ×2 (00:13→12:59)
[2022-02-07] MEDS: SODIUM CHLORIDE 0.45 % 1,000 ML IV SCH (01:53)
--- NOTE | 2022-02-07 07:32 | Discharge Summary ---
Discharge Summary Date of Service February 07, 2022 Notes For Next Care Provider Medication Changes From Visit . Admission HPI Per Admitting Provider This is a 21-year-old female with no prior medical history who presented to [facility] for evaluation of hyperglycemia. Patient states that over the last month, she has been experiencing excessive thirst, excessive urination, and excessive appetite. She also says that she has been getting muscle cramps in her legs. She denies ever having this before. She denies any recent fever, chills, sweats, or illnesses. She denies any abdominal pain. She denies any recent medications. Due to the interruptions that the symptoms were causing in her life, including sleep, she did go to [facility], who performed basic ch emistries that revealed a serum sugar over 400. She was instructed to go to the emergency department for further evaluation and work-up. 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 She does endorse occasional marijuana use and infrequent alcohol use; she does say that over the last month since the symptoms have been going on that her memory after night of drinking has been a lot worse, and hangovers have been worse. She denies any family history of type 1 diabetes, mom also denies this. Mom does report a personal history of "mixed thyroid problems, " as well as 2 maternal aunts of mother who both have hyperthyroidism, a brother of mother who has hypothyroidism. Mother also reports that her mother (maternal grandmother to patient) has rheumatoid arthritis. She denies any family history of celiac disease, lupus, ankylosing spondylitis. In the ED, patient was found to be borderline tachycardic at 99 with otherwise normal vital signs. CBC was normal. Chemistries revealing of sodium 130 in the context of blood sugar 321, normal LFTs. No gap, normal bicarb. Urine studies revealed high specific gravity with 3+ glucosuria and 4+ ketones. She was given 1L NSS and fluconazole. Admission Exam Per Admitting Provider General: 21-year old female who is alert, oriented, and appears in no acute distress. HEENT: NCAT. - Eyes - Sclera are white, anicteric, and without injection. - Mouth - MMM - Neck - supple, no appreciable JVD Cardiac: Normal rate and regular rhythm; S1 and S2 present with no murmurs, rubs, or gallops. Pulmonary: Good respiratory effort with symmetric expansion of the chest. No use of accessory muscles. Lungs were clear to auscultation bilaterally with no crackles or wheezes. Abdominal: Normoactive bowel sounds. Abdomen was soft, nondistended, and non-tender to palpation. Extremities: Upper and lower extremities are warm and well perfused. No peripheral edema in the lower extremities bilaterally Psych: Well-developed, well-nourished, appropriately dressed for occasion. Behavior is cooperative and appropriate. Affect is WNL. Insight is appropriate. Principal Dx & Hospital Course #1 = Principal Diagnosis (1) Hyperglycemia: (1) Diabetes mellitus, new onset: This is a 21-year-old female with an extensive family history of thyroid issues (hyperthyroidism and hypothyroidism) as well as MGM with RA who presented to [facility] for evaluation of > 1 month of polydipsia, polyuria, and polyphagia, subsequently found to have a BSG >350 on arrival (>400 at [facility] just prior). Her presentation in the context of a FHX of autoimmune- related issues is concerning for T1DM/DM1.5. Symptomatic Hyperglycemia / New-onset DM - Likely Type I or 1.5 - Polyuria, polyphagia, polydipsia x >1 month without recent medication changes, illnesses, or other reported symptoms - FHX is significant for multiple maternal relatives with hyper/hypothyroidism and patient's MGM has RA -- no FHX of T1DM or otherwise - Work-up as follows: - Serum BSG on arrival 321 (at [facility], was apparently >400) - Normal AG 10, normal HCO3 at 24 - 3+ glycosuria, 4+ ketonuria - BMI 25.9 on arrival - A1c 13.8% - In context of autoimmune family history, suspect likely sec to new-onset T1DM -- thankfully without evidence of DKA at this time. Type 1.5 is also possible. No findings c/w parapancreatic, medication, metabolic, or illness induced at this time. - Aggressive hydration was given; 1L LR bolus, then start 0.45% NaCl alongside 4 x 10mEq KCls - anti-GAD65, anti-IA2, anti-insulin, anti-ZnT8 alongside Cu, Fe/ferritin: pending --> Consider checking C-peptide and serum insulin levels as outpatient once this acute event resolves - Diabetes education consulted and completed 02/06/2022 - Extensive education at bedside provided RE: pathophysiology, causes, treatments - Will require endocrinology consultation at discharge - Continue to appreciate pharmacy recs on glycemic control which are as follows: - Basal insulin: Lantus 20 units SQ x 1; started this morning - Bolus insulin: insulin Aspart 1 to 12 carb ratio - Goal Range in hospital: Low 110 mg/dL - High 140 mg/dL; Correction Factor: 35 mg/dL/unit - Keep patient another day to ensure pt knows how to properly use the insulin; Discharge 02/07/22 - pt understands how to administer insulin and has a prescription for long acting insulin, short acting insulin, pen needles, and test strips. - Follow up with [facility] clinic (Dr. Zarate); Discharged today (2) Candidal vulvovaginitis: - Patient reporting pruritis in vaginal area over last week - exam deferred - Likely candidal vulvovaginitis in setting of hyperglycemia - Fluconazole 150mg x 1 given in the ED - See Primary Care if worsening after discharge Discharge Exam Constitutional WD/WN, vitals as above ENMT external ear and nose normal, oropharynx normal Neck trachea midline, no thyromegaly Respiratory normal respiratory effort Psychiatric A+Ox3, euthymic affect Updated Medication List Medication Instructions Recorded Confirmed Type drospirenone 3 mg-ethinyl 1 tab PO QPM 02/05/22 02/05/22 History estradiol 0.03 mg tablet blood sugar diagnostic (OneTouch #150 ea 02/06/22 Rx Verio test strips) insulin aspart U-100 100 unit/mL 50 unit (0.5 mL) subcut UD #15 mL 02/06/22 Rx (3 mL) subcutaneous pen (Novolog Flexpen U-100 Insulin aspart) insulin glargine 100 unit/mL (3 20 unit (0.2 mL) subcut DAILY #15 02/06/22 Rx mL) subcutaneous pen (Lantus mL Solostar U-100 Insulin) lancets 33 gauge (OneTouch Delica #150 ea 02/06/22 Rx Lancets) pen needle, diabetic 32 gauge x #150 ea 02/06/22 Rx 5/32" (Pen Needle) fluconazole 150 mg tablet 150 mg PO DAILY 1 dose #1 tab 02/07/22 Rx (Diflucan) Hospital Stay Data Consultations 02/05/22 20:14 ED Decision to Admit Stat Discharge Instructions Given to Patient (Per Discharging Provider) New-Onset Type 1 Diabetes * Type 1 Diabetes develops when your immune system goes rogue and damages/destroys the beta cells in your pancreas that produce and secrete insulin. Insulin works by telling the body to take up glucose in the bloodstream to be used for energy. When there is not enough insulin, the glucose remains in your bloodstream and leads to high blood sugar levels. * We discussed some of the reasons why it is important to get good control over your blood sugar levels. This is because over years of inadequate blood sugar control, there can be permanent damage that is done to the blood vessels in your body including macrovascular complications (heart attack, stroke, heart disease) and microvascular complications (nerve damage/neuropathy, kidney and retina damage). Checking Your Blood Sugar * To start out, you will check your blood sugar 4 times per day. 1 time when you get up in the morning, and ideally the other 3 times would be about two hours after a meal to "check your work". This will be easier once you are able to get a continuous glucose monitor (ex. Dexcom), as you will always have access to your current blood sugar level. * There may be other times that you need to check your blood sugar, including if you start to feel "off" with weakness/sweating/dizziness, etc. Then you can utilize the 15-15 rule: if your blood sugar is less than 70, eat something with roughly 15 grams of carbs then wait 15 minutes and recheck your blood sugar. If it is still less than 70, eat another 15 grams of carbs and repeat. Note, if you are alone or feel "low" very suddenly, you can eat something first before you check your level. * Your goal for blood sugar levels should be roughly 80-130 for preprandial readings (before you've eaten) and less than 180 for postprandial readings (after you've eaten). Hemoglobin A1C * Hemoglobin A1C is a test that provides a value indicating the "average" blood sugar level over the past 3 months. This is because red blood cells contain hemoglobin which cling onto sugar in the bloodstream, and those red blood cells have a lifespan of about 3 months. Therefore the Hemoglobin A1c shows how much sugar has been attached to the red blood cells. * The goal for your A1C is less than 7%. Upon admission to the hospital, your A1C was 13.8%. Since you were just diagnosed with type 1 diabetes and initiating an insulin regimen we expect that your A1C will improve and decrease over time with your use of insulin. Insulin * There are 2 main types of insulin that you will be using: Glargine (Lantus) and Lispro (Humalog) * Glargine/Lantus is the long acting insulin that you will take every morning after you wake up. It takes about 2 hours for glargine to start working, but as a "basal" dose it will continue to work throughout the entire day. As we discussed, the basal dose is about 50% of the total number of insulin units you should take in a day. For now, you will be started on 20 units of glargine/lantus in the mornings. * Lispro/Humalog is the short acting insulin that you take around 10 minutes before each meal. The remaining 50% of the total insulin units for the day (again about 20) will be split among the number of meals you have. With carbohydrate counting, you'll use 1 unit of insulin for about every 10 grams of carbohydrates you eat. If you don't have the ability to weigh or measure, in a pinch you can also use an estimate. For example, if you planned to have 3 meals per day, the remaining 20 units of insulin would be split at around 7 units of lispro/humalog for each breakfast, lunch, and dinner. This is where it is important to "check your work" and check your blood sugar about 2 hours after the meal. Keeping track of what you ate for the meal, how much insulin you took, and then what your blood sugar was at 2 hours will help guide you to know how much insulin to take the next time you eat a similar meal. Follow Up * Your insulin, lancets, test strips, pen needles, were sent to your pharmacy ([facility]). * It will be important to follow up with a doctor to check in on your progress and adjust your insulin as appropriate. * Your follow up appointment will be at [facility], [facility], [address], [place], [place] [phone] * We will reach out to give you the finalized appointment time early next week, tentatively scheduled for Feb.14, 3:00pm Total Time Total Time Spent Total Time Spent (In Minutes): <30 Supervising Physician Co-Signing Physician Notes I personally examined the patient and verified all monson points of history and exam, discussed case, and agree with decision making with A [place] MS3 feeling better overall. discussed DM control, insulin management, etc. Patient expressed good understanding. Mom present and she expressed good understanding as well. Feels good about going home. Vitals noted, in general she is awake and alert pleasant no distress. HEENT normocephalic atraumatic mucous membranes moist. Breathing unlabored no accessory muscle use good effort. Skin shows no rashes no pallor or icterus. Neuro without focal deficits. New onset type 1 diabetesHome on subcu insulin. Close outpatient follow-up. Extensive education provided. Otherwise as above
[2022-02-07 08:12] LABS: Anion Gap 6 (3-11); BUN Creatinine Ratio 13.1 (10-20); Blood Urea Nitrogen 8 mg/dl (6-23); Calcium 8.4 mg/dl (8.5-10.1); Carbon Dioxide 23 mmol/L (21-32); Chloride 106 mmol/L (98-107); Creatinine Clr Calc Pharmacy 164.7 ml/min; Est GFR (African American) > 150.0 ml/min; Est GFR (Non-African American) 129.6 ml/min; Glucose 162 mg/dl (70-99(Fasting)); Potassium 3.7 mmol/L (3.5-5.1); Sodium 135 mmol/L (136-145)
[2022-02-07] MEDS ORDERED: LANTUS PER UNIT CHARGE SQ SCH ×2 (09:00)
--- NOTE | 2022-02-07 18:35 | Billing Data ---
Date of Service February 07, 2022 Coding Level of Care Code D/C DAY MANAGEMENT <30 MINS
[2022-02-14 17:02] LABS: Copper, Serum 171 mcg/dL (70-175); Glutamic Acid Decarboxylase 65 >250 IU/mL (<5); Zinc Transporter 8 (ZnT8) Ab >500 U/mL (<15)
== END 2022-02-07 16:29 | disposition home or self-care (01) | DRG 638 ==
LOC: ED 17:10 → EDINP 20:40 → SUATTDRO 20:40 → 2W 23:32